=== PATIENT | female | born 2000 ===

== ENCOUNTER 2024-06-24 06:22 | Day surgery (SDC) | payer BC, SELFPAY ==
[2024-06-24] VITALS (9 sets, daily range): BP systolic 102–132; BP diastolic 62–80; BMI 22.8
[2024-06-24] MEDS: NORMOSOL-R 1000 IV (08:25)
== END 2024-06-24 13:56 | disposition home or self-care (01) ==
LOC: SDS 06:22
PROVIDERS: ATTENDING PHYSICIAN Otolaryngology
DX: H72.01 Central perforation of tympanic membrane, right ear (principal); H90.11 Conductive hearing loss, unilateral, right ear, with unrestricted hearing on the contralateral side
CPT/HCPCS: 69631